=== PATIENT | female | born 1940 | race Hispanic/Latino ===

== ENCOUNTER → 2024-07-28 | Outpatient (CLI) | payer MEDICARE ==
[~2024-07-28] MED LIST: AEC81 PO; ATOR40TA71 PO; CLOP-31 PO; DICL75TA5 PO; FLUO40CA49 PO; LEVO50TA11 PO; LOSA-417 PO; MELO-108 PO; METO25TA3 PO; NITR0.4T50 SL
== END | disposition home or self-care (01) ==
LOC: SHCH 13:38
PROVIDERS: ATTEND Student in an Organized Health Care Education/Training Program
DX: I25.10 Atherosclerotic heart disease of native coronary artery without angina pectoris (principal)
CPT/HCPCS: 93306